=== PATIENT | male | born 1960 | race Caucasian/White ===

== ENCOUNTER 2016-12-24 11:10 | Emergency (ER) | payer BC ==
[2016-12-24] MEDS ORDERED: HYDROmorphone 1 MG/ML SYRINGE IM STA (13:51)
[2016-12-24] MEDS ORDERED: KETOROLAC 60 MG/2 ML VIAL IM STA (13:51)
[2016-12-24] MEDS ORDERED: ONDANSETRON ODT 4 MG TABLET TL STA (13:51)
[2016-12-24] MEDS ORDERED: KETOROLAC 60 MG/2 ML VIAL ONE (13:56)
[2016-12-24] MEDS ORDERED: HYDROmorphone 1 MG/ML SYRINGE ONE (13:56)
[2016-12-24] MEDS ORDERED: ONDANSETRON ODT 4 MG TABLET ONE (14:05)
== END 2016-12-24 14:38 | disposition home or self-care (01) ==
DX: N23 Unspecified renal colic (principal); R03.0 Elevated blood-pressure reading, without diagnosis of hypertension
CPT/HCPCS: 81003; 96372; 99283; J1170; Q0162

== ENCOUNTER 2019-05-28 08:33 | Outpatient (CLI) | payer BC | END 2019-05-28 08:34 | disposition home or self-care (01) | LOC: DI 08:33 | PROVIDERS: ATTEND Internal Medicine Cardiovascular Disease | DX: I47.9 Paroxysmal tachycardia, unspecified (principal) | CPT/HCPCS: 93306 ==

== ENCOUNTER 2019-06-03 12:03 | Outpatient (CLI) | payer BC ==
--- NOTE | 2019-06-03 15:48 | CARDIAC PROCEDURE NOTE ---
DATE OF SERVICE: 06/03/2019 Physician: Margret Argueta MD, [facility] INDICATION: Tachycardia and paroxysmal tachycardia. CARDIAC RISK FACTORS: Male gender, hypertension, unknown family history. DESCRIPTION OF PROCEDURE: After signing informed consent, the patient underwent a Chris-protocol treadmill stress test. No imaging was ordered with this test. Resting heart rate: 73. Peak heart rate: 154 (94% predicted maximum heart rate for age). Resting blood pressure:132/82. Peak blood pressure: 174/75. Patient exercised for 8 minutes on a Chris-protocol treadmill stress test. He achieved a peak heart rate of 154 (94% predicted maximum heart rate for age) and 10.1 METs. The patient had mild shortness of breath at peak. Oxygen saturation was 98% to 99%. Patient developed no chest pain. He described his perceived exertion at 13-14/20 on a John scale at peak. The patient developed no paroxysms of tachy-dysrhythmia. RESTING ELECTROCARDIOGRAM: Ectopic atrial rhythm (abnormal P-waves, triphasic and M-shaped) at rest, also early R/S transition present. ELECTROCARDIOGRAM AT PEAK: Upsloping ST segments in V3 through V4, and diffusely flat T waves in precordial leads and limb leads. These changes returned to baseline after 1 minute of recovery. SUMMARY 1. Abnormal rhythm and abnormal resting electrocardiogram. 2. Fair to good exercise tolerance. 3. Nonspecific EKG changes develop at an adequate level of stress. 4. No imaging was ordered with this test. Consider repeat testing with cardiac imaging. cc: Brayden Isabel MD TD: 06/03/2019 15:26 MTDD
== END 2019-06-03 12:04 | disposition home or self-care (01) ==
LOC: DI 12:03
PROVIDERS: ATTEND Internal Medicine Cardiovascular Disease
DX: I47.9 Paroxysmal tachycardia, unspecified (principal)

== ENCOUNTER 2021-10-12 02:12 | Observation (INO) | payer OTHER ==
[2021-10-12] MEDS ORDERED: SODIUM CHLORIDE 0.9% 500 ML IV STA (02:24)
[2021-10-12 02:38] LABS: BASOPHILS % (AUTO) 0.6 %; EOSINOPHILS # (AUTO) 0.3 10^3/uL (0.0-0.7); HCT - HEMATOCRIT 43.1 % (42.0-52.0); HGB - HEMOGLOBIN 14.4 g/dL (14.0-18.0); LYMPHOCYTES # (AUTO) 2.7 10^3/uL (1.5-3.5); LYMPHOCYTES % (AUTO) 39.3 %; MEAN CORPUSCULAR HEMOGLOBIN 30.4 pg (27.0-31.0); MEAN CORPUSCULAR HGB CONC 33.4 g/dL (32.0-36.0); MEAN CORPUSCULAR VOLUME 91.1 fL (80.0-94.0); MEAN PLATELET VOLUME 8.3 fL (7.4-11.4); MONOCYTES # (AUTO) 0.8 10^3/uL (0.0-1.0); MONOCYTES % (AUTO) 11.9 %; NEUTROPHILS % (AUTO) 44.1 %; PLT - PLATELET COUNT 221 10^3/uL (130-450); RED BLOOD COUNT 4.73 10^6/uL (4.70-6.10); RED CELL DISTRIBUTION WIDTH 12.4 % (12.0-15.0); WHITE BLOOD COUNT 6.8 x10^3/uL (4.8-10.8)
[2021-10-12] MEDS ORDERED: diltiaZEM INJ 5 MG/ML VIAL IVP STA (02:44)
[2021-10-12 02:59] LABS: ALBUMIN 3.9 g/dL (3.2-5.5); ALBUMIN/GLOBULIN RATIO 1.1 (1.0-2.2); BILIRUBIN,TOTAL 0.2 mg/dL (0.2-1.0); CALCIUM 9.6 mg/dL (8.5-10.3); CREATININE 1.3 mg/dL (0.6-1.2); POTASSIUM 3.6 mmol/L (3.5-5.0); TOTAL PROTEIN 7.5 g/dL (6.7-8.2)
--- NOTE | 2021-10-12 03:39 | ED Physician Documentation ---
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 denies cp. had been feeling normal yesterday during the day. denies fevers, diaphoresis. Review of Systems Ten Systems: 10 systems reviewed and negative Constitutional: denies: Fever, Chills Cardiac: reports: Palpitations. denies: Chest pain / pressure Respiratory: reports: Dyspnea. denies: Cough GI: reports: Nausea. denies: Abdominal Pain, Vomiting PD PAST MEDICAL HISTORY - Past Medical History Cardiovascular: Hypertension Respiratory: None Endocrine/Autoimmune: None : None, Kidney stones HEENT: Chronic vision loss, Chronic hearing loss Derm: None - Past Surgical History Past Surgical History: No - Present Medications Home Medications: Ambulatory Orders Medication Instructions Recorded Confirmed Dextroamphetamine/Amphetamine 10 mg PO DAILY 10/12/21 10/12/21 [Adderall 10 mg Tablet] Duloxetine HCl [Cymbalta] 40 mg PO DAILY 10/12/21 10/12/21 Losartan [Cozaar] 50 mg PO DAILY 10/12/21 10/12/21 Tadalafil [Cialis] 10 mg PO DAILY PRN 10/12/21 10/12/21 - Allergies Allergies/Adverse Reactions: Allergies Allergy/AdvReac Type Severity Reaction Status Date / Time No Known Drug Allergies Allergy Verified 10/12/21 02:31 - Social History Does the pt smoke?: No Smoking Status: Never smoker Does the pt drink ETOH?: Yes Does the pt have substance abuse?: No - Immunizations Immunizations are current?: Yes - POLST Patient has POLST: No PD ED PE NORMAL - Vitals Vital signs reviewed: Yes - General General: Alert and oriented X 3, No acute distress, Well developed/nourished - HEENT HEENT: Atraumatic, PERRL, EOMI - Neck Neck: Supple, no meningeal sign - Cardiac Cardiac: RRR - Respiratory Respiratory: No respiratory distress, Clear bilaterally - Abdomen Abdomen: Non tender, Non distended - Derm Derm: Normal color, Warm and dry - Extremities Extremities: No deformity - Neuro Neuro: No motor deficit, No sensory deficit - Psych Psych: Normal mood, Normal affect Results - Vitals Vitals: Vital Signs - 24 hr 10/12/21 10/12/21 10/12/21 02:15 02:35 03:07 Temperature 36.6 C Heart Rate 123 H 126 H 118 H Respiratory 16 16 14 Rate Blood Pressure 156/110 H 114/99 H 155/93 H O2 Saturation 98 97 98 10/12/21 10/12/21 10/12/21 03:10 03:15 03:20 Temperature Heart Rate 87 81 68 Respiratory 12 12 11 L Rate Blood Pressure 127/77 139/81 H 128/85 H O2 Saturation 96 96 98 10/12/21 10/12/21 10/12/21 03:35 03:50 04:06 Temperature 36.9 C 36.9 C Heart Rate 69 79 69 Respiratory 14 12 12 Rate Blood Pressure 129/84 H 142/89 H 142/101 H O2 Saturation 97 98 96 10/12/21 05:03 Temperature Heart Rate 94 Respiratory 11 L Rate Blood Pressure 140/104 H O2 Saturation 97 Oxygen O2 Source Room air - EKG (time done) 0219 Rate: Rate (enter#) (136) Rhythm: Atrial flutter Ischemia: Other (ST depression in v3, v4) 0344 Rate: Rate (enter#) (69) Rhythm: Atrial flutter Ischemia: Other (ST depression in precordials improved) - Labs Labs: Laboratory Tests 10/12/21 10/12/21 10/12/21 02:27 02:27 02:27 WBC 6.8 RBC 4.73 Hgb 14.4 Hct 43.1 MCV 91.1 MCH 30.4 MCHC 33.4 RDW 12.4 Plt Count 221 MPV 8.3 Neut # (Auto) 3.0 Lymph # (Auto) 2.7 [place] # (Auto) 0.8 Eos # (Auto) 0.3 Baso # (Auto) 0.0 Absolute Nucleated RBC 0.00 Nucleated RBC % 0.0 Sodium 138 Potassium 3.6 Chloride 103 Carbon Dioxide 25 Anion Gap 10.0 BUN 15 Creatinine 1.3 H Estimated GFR (MDRD) 57 L Glucose 109 H Calcium 9.6 Total Bilirubin 0.2 AST 28 ALT 29 Alkaline Phosphatase 52 Troponin I High Sens 7.5 Total Protein 7.5 Albumin 3.9 Globulin 3.6 Albumin/Globulin Ratio 1.1 Lipase 25 10/12/21 04:00 WBC RBC Hgb Hct MCV MCH MCHC RDW Plt Count MPV Neut # (Auto) Lymph # (Auto) [place] # (Auto) Eos # (Auto) Baso # (Auto) Absolute Nucleated RBC Nucleated RBC % Sodium Potassium Chloride Carbon Dioxide Anion Gap BUN Creatinine Estimated GFR (MDRD) Glucose Calcium Total Bilirubin AST ALT Alkaline Phosphatase Troponin I High Sens 9.6 Total Protein Albumin Globulin Albumin/Globulin Ratio Lipase PD MEDICAL DECISION MAKING - ED course ED course: 3:30am - HR now down to low 70s, high 60s on monitor. patient states his nausea, palpitations have resolved. will repeat ekg. Repeat ekg rate controlled aflutter.
[2021-10-12] MEDS ORDERED: ONDANSETRON 4 MG/2 ML VIAL IVP PRN (06:47)
[2021-10-12] MEDS ORDERED: SODIUM CHLORIDE FLUSH 0.9% 10 ML SYRINGE IVP PRN (06:47)
[2021-10-12] MEDS ORDERED: ACETAMINOPHEN 325 MG TABLET PO PRN (06:47)
[2021-10-12] MEDS ORDERED: diltiaZEM CD 120 MG CAPSULE PO SCH (07:00)
[2021-10-12 07:21] LABS: CALCIUM 9.2 mg/dL (8.5-10.3); CREATININE 1.4 mg/dL (0.6-1.2); POTASSIUM 4.1 mmol/L (3.5-5.0)
[2021-10-12 07:26] LABS: B. PARAPERTUSSIS- RESP PCR PAN NOT DETECTED; B. PERTUSSIS- RESP PCR PANEL NOT DETECTED; C. PNEUMONIAE- RESP PCR PANEL NOT DETECTED; CORONAVIRUS 229E-RESP PCR NOT DETECTED; CORONAVIRUS HKU1-RESP PCR NOT DETECTED; CORONAVIRUS NL63-RESP PCR NOT DETECTED; CORONAVIRUS OC43-RESP PCR NOT DETECTED; HUMAN METAPNEUMOVIRUS NOT DETECTED; INFLUENZA A- RESP PCR PANEL NOT DETECTED; INFLUENZA B - RESP PCR PANEL NOT DETECTED; M. PNEUMONIAE- RESP PCR PANEL NOT DETECTED; PARAINFLUENZA VIRUS 1 NOT DETECTED; PARAINFLUENZA VIRUS 2 NOT DETECTED; PARAINFLUENZA VIRUS 3 NOT DETECTED; PARAINFLUENZA VIRUS 4 NOT DETECTED; RHINOVIRUS/ENTEROVIRUS NOT DETECTED; RSV- RESP PCR PANEL NOT DETECTED; SARS-CoV-2 -RESP PCR PANEL NOT DETECTED
[2021-10-12] MEDS ORDERED: diltiaZEM CD 120 MG CAPSULE PO STA (07:49)
--- NOTE | 2021-10-12 08:34 | HISTORY & PHYSICAL EXAMINATION ---
Chief Complaint - Chief Complaint Chief Complaint: "heart feeling funny" History of Present Illness - Admitted From Admitted From:: [facility] - History Obtained From Records Reviewed: yes History obtained from: patient Exam Limitations: none - History of Present Illness HPI Comment/Other: Patient is a 60-year-old male who presented to the ED with complaint of his heart feeling funny. He woke up this morning around 1:[address] He has a heart monitoring device which indicated possible atrial fibrillation. After symptoms did not resolve in 30 minutes he was brought to the ED by his . Work-up included an EKG which showed he was in atrial fibrillation with rapid ventricular rhythm. He denied chest pain but reported mild dyspnea and dizziness. He denied abdominal pain. He is nauseous but no vomiting. He denied fever or chills. He was given a dose of diltiazem 20 mg IV x1 which brought his heart rate down to the 80s. However the patient slowly became tachycardic again. He reports a previous history of tachycardia 3 years ago for which she saw a incident response consultant in [place]. Work-up was unremarkable. The patient was recently started on Adderall for idiopathic hypersomnia. He has been taking this medication for 6 months. The rest of his history was unremarkable. He was admitted for better control of his heart rate and for a 2D echocardiogram. History - Past Medical History Cardiovascular: reports: Hypertension Respiratory: reports: None Neuro: reports: None Endocrine/Autoimmune: reports: None GI: reports: None : reports: None, Kidney stones HEENT: reports: Chronic vision loss, Chronic hearing loss Psych: reports: None Musculoskeletal: reports: None Derm: reports: None MRSA Hx?: No Other Past Medical History: Idiopathic hypersomnia, peripheral neuropathy - Past Surgical History Other past surgical history: Right knee arthroscopy, back surgery secondary to bulging disc. - Family & Social History Family History Comment/Other: His father at the age of 58 from a ruptured aortic aneurysm. His mother at age 53 from breast cancer. Social History Notes: He lives at home with his . He consumes alcohol occasionally. He does not use tobacco products or recreational substances. 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 - POLST Patient has POLST: No POLST Status: Full Code Meds/Allgy - Home Medications Home Medications: Ambulatory Orders Medication Instructions Recorded Confirmed Dextroamphetamine/Amphetamine 10 mg PO DAILY 10/12/21 10/12/21 [Adderall 10 mg Tablet] Duloxetine HCl [Cymbalta] 40 mg PO DAILY 10/12/21 10/12/21 Losartan [Cozaar] 50 mg PO DAILY 10/12/21 10/12/21 Tadalafil [Cialis] 10 mg PO DAILY PRN 10/12/21 10/12/21 - Allergies Allergies/Adverse Reactions: Allergies Allergy/AdvReac Type Severity Reaction Status Date / Time No Known Drug Allergies Allergy Verified 10/12/21 02:31 Review of Systems - Constitutional Constitutional: denies: Fatigue, Fever - Eyes Eyes: denies: Pain, Vision loss - Ears, Nose & Throat Ears, Nose & Throat: denies: Ear pain - Cardiovascular Cariovascular: reports: Palpitations. denies: Chest pain - Respiratory Respiratory: reports: SOB at rest. denies: Cough, Sputum production, Wheezing - Gastrointestinal Gastrointestinal: reports: Nausea. denies: Abdominal pain, Abdominal distention, Constipation, Diarrhea, Vomiting - Genitourinary Genitourinary: denies: Dysuria, Frequency, Urgency, Hematuria - Musculoskeletal Musculoskeletal: denies: Muscle pain, Back pain, Muscle aches - Integumentary Integumentary: denies: Rash, Pruritis, Lesions - Neurological Neurological: reports: Dizziness. denies: General weakness, Headache - Psychiatric Psychiatric: denies: Depression, Anxiety - Endocrine Endocrine: denies: Polyuria, Polydypsia - Hematologic/Lymphatic Hematologic/Lymphatic: denies: Bruising, Petechiae Prior Level of Functionality: Patient is independent of activities of daily living. Exam - Vital Signs Vital Signs: Vital Signs x48h Temp Pulse Resp BP Pulse Ox 10/12/21 07:24 118 H 18 148/82 H 100 10/12/21 06:03 100 12 156/95 H 99 10/12/21 05:03 94 11 L 140/104 H 97 10/12/21 04:06 36.9 C 69 12 142/101 H 96 10/12/21 03:50 36.9 C 79 12 142/89 H 98 10/12/21 03:35 69 14 129/84 H 97 10/12/21 03:20 68 11 L 128/85 H 98 10/12/21 03:15 81 12 139/81 H 96 10/12/21 03:10 87 12 127/77 96 10/12/21 03:07 118 H 14 155/93 H 98 10/12/21 02:35 126 H 16 114/99 H 97 10/12/21 02:15 36.6 C 123 H 16 156/110 H 98 - Physical Exam General Appearance: positive: No acute distress, Alert Eyes Bilateral: positive: PERRL, EOMI ENT: positive: Dry mucous membranes Neck: positive: No JVD, Trachea midline Respiratory: positive: Chest non-tender, No respiratory distress, Breath sounds nml. negative: Wheezes, Rales, Rhonchi Cardiovascular: positive: No murmur, Irregularly irregular, Tachycardia Abdomen: positive: Non-tender, No organomegaly, Nml bowel sounds, No distention. negative: Guarding, Rebound Back: positive: Nml inspection Skin: positive: Color nml, No rash, Warm, Dry Extremities: positive: Non-tender, Full ROM, Nml appearance, No pedal edema Neurologic/Psychiatric: positive: Oriented x3, Mood/affect nml Conclusion/Plan - Problem List (1) Atrial fibrillation with RVR Conclusion/Plan: Etiology undetermined. Patient given a dose of diltiazem 20 mg IV x1 in the ED. This resulted in improvement in heart rate down to the 80s. However heart rate has slowly been increasing again. Diltiazem CD 120 mg was given this morning. Will increase to diltiazem CD 180 tomorrow morning. Immediate release diltiazem 30 mg twice daily ordered because patient's heart rate was 120s. 2D echocardiogram done 10/12/2021 showed an ejection fraction of 55 to 60%. There was no wall motion abnormality seen. No aortic stenosis or regurgitation. No mitral stenosis or mitral regurgitat ion. Could not accurately assess RVSP. Given patient's Angelo vas score of 2 will advise patient take baby aspirin daily. Has recently been on Adderall in the past 6 months for idiopathic hypersomnia. Potential side effect of the stimulant could be tachycardia. Patient was advised to discuss with his primary care provider about possible discontinuation. He expressed understanding. (2) MURIEL (acute kidney injury) Conclusion/Plan: Creatinine this morning was 1.4 with estimated GFR of 52. Patient was started normal saline at 200 mL/h for 5 hours. (3) Hypertension Conclusion/Plan: On losartan. We will continue. Currently started on diltiazem as well. Blood pressure 130/92 (4) Peripheral neuropathy Conclusion/Plan: On Cymbalta 40 mg p.o. daily. (5) Idiopathic hypersomnia Conclusion/Plan: Patient has been on Adderall 10 mg p.o. daily for the past 6 months. He has been advised about the potential side effect of tachycardia and to discuss with his primary care physician about possibly changing medication. He expressed understanding. - Lab Results Fish Bones: 10/12/21 02:27 10/12/21 07:04 Core Measures - Anticipated LOS I expect patient to be DC'd or transferred within 96 hours.: Yes - DVT/VTE - Prophylaxis VTE/DVT Device ordered at admit?: Yes VTE/DVT Prophylaxis med ordered at admit?: Yes
[2021-10-12] MEDS ORDERED: METOPROLOL 5 MG/5 ML VIAL IVP PRN (09:22)
[2021-10-12] MEDS: SODIUM CHLORIDE FLUSH 0.9% 10 ML SYRINGE IVP SCH ×2 (09:55→15:16)
--- NOTE | 2021-10-12 09:55 | XRAY Report ---
PROCEDURE: Chest 1 View X-Ray INDICATIONS: Chest Pain TECHNIQUE: One view of the chest was acquired. COMPARISON: None FINDINGS: Surgical changes and devices: None. Lungs and pleura: No pleural effusions or pneumothorax. Lungs are clear. Mediastinum: Mediastinal contours appear normal. Heart size is normal. Bones and chest wall: No suspicious bony lesions. Overlying soft tissues appear unremarkable. IMPRESSION: No acute pulmonary process. The above findings are concordant with preliminary report. Reviewed by: Dana Sutton MD on 10/12/2021 9:54 AM [facility] Approved by: Dana Sutton MD on 10/12/2021 9:54 AM [facility] Station ID: [id number]
[2021-10-12] MEDS ORDERED: SODIUM CHLORIDE 0.9% 1,000 ML IV SCH (10:00)
[2021-10-12] MEDS: ENOXAPARIN 40 MG/0.4 ML SYRINGE SUBQ SCH (10:12)
[2021-10-12] MEDS: DULoxetine 20 MG CAPSULE PO SCH (10:12)
[2021-10-12] MEDS: LOSARTAN 50 MG TABLET PO SCH (10:13)
[2021-10-12] MEDS ORDERED: diltiaZEM 30 MG TABLET PO SCH (12:00)
[2021-10-12] MEDS ORDERED: METOPROLOL TARTRATE 25 MG TABLET PO SCH (12:00)
[2021-10-12] MEDS: diltiaZEM 30 MG TABLET PO SCH (18:45)
[2021-10-13] MEDS: diltiaZEM 30 MG TABLET PO SCH (00:10)
[2021-10-13] MEDS: SODIUM CHLORIDE FLUSH 0.9% 10 ML SYRINGE IVP SCH ×2 (00:11→08:58)
[2021-10-13] MEDS ORDERED: diltiaZEM CD 120 MG CAPSULE PO SCH (06:00)
[2021-10-13] MEDS ORDERED: diltiaZEM CD 180 MG CAPSULE PO SCH (07:00)
[2021-10-13] MEDS ORDERED: ASPIRIN 325 MG TABLET PO STA (07:43)
--- NOTE | 2021-10-13 07:44 | Discharge Plan ---
Discharge Plan Problem Reviewed?: Yes Disposition: Home, Self Care Condition: Stable Prescriptions: diltiaZEM [Cardizem] 30 mg PO Q6H PRN 5 Days #20 tablet PRN Reason: Tachycardia diltiaZEM CD [Cardizem Cd] 120 mg PO Q12H 30 Days #60 cap Instruction Topics: Diltiazem tablets Health Concerns: You were admitted on 10/12/2021 with atrial fibrillation with rapid ventricular rhythm. You received a one-time dose of diltiazem 20 mg IV in the emergency room which improved your heart rate down to the 70s. However over the course of time your heart rate increased back to the 130s and occasionally 150s. You were admitted and placed on diltiazem CD 120 mg. You required 3 doses of fast acting diltiazem 30 mg tablets to keep your heart rate controlled over the course of 24 hours in the hospital. As a result you are being discharged with a prescription of diltiazem CD which is a long-acting medication 120 mg p.o. twice daily. You have also been prescribed diltiazem immediate release 30 mg tablets. Instructions are to take 1 tablet of the immediate release every 6 hours if your heart rate is sustaining greater than 120 after having taken your regular diltiazem CD for the day. You had a 2D echocardiogram done which was normal as a result the only recommendation regarding anticoagulation is to take a baby aspirin daily. Level was checked and noted to be normal. It is suspected that the Adderall is contributing to tachycardia/atrial fibrillation. You have been advised to follow-up with your primary care physician regarding discontinuation of the medication. If you start experiencing weakness or dizziness check your blood pressure and if less than 110 and advised would be to discuss with your primary care physician about stopping losartan. This is because the diltiazem is also effective at lowering blood pressure. However overall if your heart rate is persisting greater than 120s and you are sensing fluttering, chest pressure, difficulty breathing or dizzy do not hesitate to come back to the emergency department for evaluation. The above plan was explained to you, you expressed understanding and are in agreement. You are being discharged in stable condition. You may follow-up with your primary care physician within 7 days or as needed. No Smoking: If you smoke, Please STOP! Call for help. Follow-up with: RENZO HINOJOSA ND [Primary Care Provider] -
--- NOTE | 2021-10-13 07:44 | DISCHARGE SUMMARY ---
Discharge Summary Admit Date: 10/12/21 Discharge Date: 10/13/21 Discharging Provider: Leticia Corona Primary Care Provider: Nella Sanchez Code Status: Attempt Resuscitation Condition at Discharge: Stable Discharge Disposition: 01 Home, Self Care - DIAGNOSES Admission Diagnoses: Atrial fibrillation with RVR Acute kidney injury Hypertension Peripheral neuropathy Idiopathic hypersomnia Discharge Diagnoses with Status of Each Condition: Atrial fibrillation with RVR: Acute. Heart rate controlled. Patient will continue taking diltiazem at home. Acute kidney injury: Improved/resolved. Patient given IV hydration with normal saline. Hypertension: Chronic. Patient on losartan. Peripheral neuropathy: Chronic. Patient takes Cymbalta. Idiopathic hypersomnia: Chronic. Patient takes Adderall. However he has been advised about possible discontinuing Adderall due to tachycardia - HPI History of Present Illness: Patient is a 60-year-old male who presented to the ED with complaint of his heart feeling funny. He woke up this morning around 1:[address] He has a heart monitoring device which indicated possible atrial fibrillation. After symptoms did not resolve in 30 minutes he was brought to the ED by his . Work-up included an EKG which showed he was in atrial fibrillation with rapid ventricular rhythm. He denied chest pain but reported mild dyspnea and dizziness. He denied abdominal pain. He is nauseous but no vomiting. He denied fever or chills. He was given a dose of diltiazem 20 mg IV x1 which brought his heart rate down to the 80s. However the patient slowly became tachycardic again. He reports a previous history of tachycardia 3 years ago for which she saw a fleet dispatch manager in [place]. Work-up was unremarkable. The patient was recently started on Adderall for idiopathic hypersomnia. He has been taking this medication for 6 months. The rest of his history was unremarkable. He was admitted for better control of his heart rate and for a 2D echocardiogram. He received a one-time dose of diltiazem 20 mg IV in the emergency room which improved your heart rate down to the 70s. However over the course of time your heart rate increased back to the 130s and occasionally 150s. He was admitted and placed on diltiazem CD 120 mg. He required 3 doses of fast acting diltiazem 30 mg tablets to keep your heart rate controlled over the co urse of 24 hours in the hospital. As a result he was discharged with a prescription of diltiazem CD which is a long-acting medication 120 mg p.o. twice daily. He was also prescribed diltiazem immediate release 30 mg tablets. Instructions are to take 1 tablet of the immediate release every 6 hours if your heart rate is sustaining greater than 120 after having taken your regular diltiazem CD for the day. He had a 2D echocardiogram done which was normal as a result the only recommendation regarding anticoagulation was to take a baby aspirin daily. Level was checked and noted to be normal. It is suspected that the Adderall is contributing to tachycardia/atrial fibrillation. He was advised to follow-up with your primary care physician regarding discontinuation of the medication. He he starts experiencing weakness or dizziness check he is to check his blood pressure and if less than 110 to discuss with his primary care physician about stopping losartan. This is because the diltiazem is also effective at lowering blood pressure. He was discharged in stable condition. - ALLERGIES Allergies/Adverse Reactions: Allergies Allergy/AdvReac Type Severity Reaction Status Date / Time No Known Drug Allergies Allergy Verified 10/12/21 02:31 - MEDICATIONS Home Medications: Ambulatory Orders Medication Instructions Recorded Confirmed Dextroamphetamine/Amphetamine 10 mg PO DAILY 10/12/21 10/12/21 [Adderall 10 mg Tablet] Duloxetine HCl [Cymbalta] 40 mg PO DAILY 10/12/21 10/12/21 Losartan [Cozaar] 50 mg PO DAILY 10/12/21 10/12/21 Tadalafil [Cialis] 10 mg PO DAILY PRN 10/12/21 10/12/21 diltiaZEM CD [Cardizem Cd] 120 mg PO Q12H 30 Days #60 cap 10/13/21 diltiaZEM [Cardizem] 30 mg PO Q6H PRN 5 Days #20 tablet 10/13/21 - PHYSICAL EXAM AT DISCHARGE General Appearance: positive: No acute distress, Alert Eyes Bilateral: positive: PERRL, EOMI ENT: positive: No signs of dehydration Neck: positive: No JVD, Trachea midline Respiratory: positive: Chest non-tender, No respiratory distress, Breath sounds nml. negative: Wheezes, Rales, Rhonchi Cardiovascular: positive: No murmur, Irregularly irregular Abdomen: positive: Non-tender, No organomegaly, Nml bowel sounds, No distention. negative: Guarding, Rebound Back: positive: Nml inspection Skin: positive: No rash, Warm, Dry Extremities: positive: Non-tender, Full ROM, Nml appearance, No pedal edema Neurologic/Psychiatric: positive: Oriented x3, Mood/affect nml - LABS Result Diagrams: 10/12/21 02:27 10/12/21 07:04 - TIME SPENT Time Spent in Discharge (Minutes): 20
[2021-10-13] MEDS: DULoxetine 20 MG CAPSULE PO SCH (08:53)
[2021-10-13] MEDS: LOSARTAN 50 MG TABLET PO SCH (08:54)
[2021-10-13] MEDS: ENOXAPARIN 40 MG/0.4 ML SYRINGE SUBQ SCH (08:55)
[2021-10-13] MEDS ORDERED: AMPHETAMINE PO SCH (09:00)
[2021-10-13] MEDS ORDERED: DEXTROAMPHETAMINE PO SCH (09:00)
[2021-10-13] MEDS ORDERED: [UNRECOGNIZED DRUG - OTHER] PO SCH (09:00)
[2021-10-13 13:34] VITALS: BP 141/77
== END 2021-10-13 14:30 | disposition home or self-care (01) ==
LOC: ED 02:12 → MS2 06:47
PROVIDERS: ADMIT Internal Medicine; ATTEND Internal Medicine
DX: I48.0 Paroxysmal atrial fibrillation (principal); I48.92 Unspecified atrial flutter; N17.9 Acute kidney failure, unspecified; I10 Essential (primary) hypertension; G47.11 Idiopathic hypersomnia with long sleep time; G62.9 Polyneuropathy, unspecified; R00.0 Tachycardia, unspecified; R11.0 Nausea; R07.9 Chest pain, unspecified; Z20.822 Contact with and (suspected) exposure to COVID-19; Z79.899 Other long term (current) drug therapy; Z82.49 Family history of ischemic heart disease and other diseases of the circulatory system
CPT/HCPCS: 0202U; 36415; 71045; 80048; 80053; 83690; 84443; 84484; 85025; 93005; 93306; A9270; G0378; J1650

== ENCOUNTER 2022-07-01 14:11 | Outpatient (CLI) | payer OTHER | END 2022-07-01 14:12 | disposition critical access hospital (66) | LOC: EMS 14:11 | DX: R42 Dizziness and giddiness (principal); R11.0 Nausea; R00.2 Palpitations | CPT/HCPCS: A0425; A0427 ==

== ENCOUNTER 2022-07-01 14:30 | Observation (INO) | payer OTHER ==
[2022-07-01] MEDS ORDERED: LORazepam 2 MG/ML VIAL IVP STA ×2 (14:48→17:00)
--- NOTE | 2022-07-01 14:56 | ED Physician Documentation ---
History of Present Illness - Stated complaint Stated Complaint: DIZZY/NAUSEA - Chief complaint Chief Complaint: Cardiac - Additonal information Additional information: 61-year-old male presents to the emergency department for evaluation of hy perventilation, sudden onset dizziness and what appears to be panic and worry. When he attempts to speak he can barely get out a word before he starts crying and mumbling unable to make coherent speech This gentleman was in the car driving with his daughter going to a celebratory lunch when he began to feel generally unwell. He then began to breathing very rapidly and EMS was summoned. In transport he was noted to have fairly rapid heart rate in the 120s but it was sinus. This gentleman does have a history of atrial flutter for which he underwent an ablation earlier this summer. He was previously on diltiazem and Eliquis though those were stopped 2 weeks ago as a Holter monitor had shown that the patient no longer had runs of flutter, fibrillation or any tacky arrhythmia. Followed by Information Security Specialist Dr. Bello He also underwent a retinal eye surgery this last and is wearing a patch on his eye. He did undergo a retinal surgery for which she has been placing ofloxacin eyedrops as well as prednisolone eyedrops into the right eye. Per his they did have instill some air behind the retina during the surgery. He also underwent corneal treatment with the laser. Patient was to be prone 80% of the time for 3 days postsurgery. He did develop some lower back pain and spasm therefore he was placed on methocarbamol. 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 for which he takes Adderall and modafinil Meds: Flomax, trazodone as needed, methocarbamol as needed, Adderall daily, modafinil daily, ofloxacin eyedrops daily, prednisolone eyedrops daily Review of Systems Unable to obtain: Other (pt condition on arival) PD PAST MEDICAL HISTORY - Past Medical History Cardiovascular: Hypertension Respiratory: None Neuro: None Endocrine/Autoimmune: None GI: None : None, Kidney stones HEENT: Chronic vision loss, Chronic hearing loss Psych: None Musculoskeletal: None Derm: None - Past Surgical History Past Surgical History: No Ortho: Spine surgery, Other - Present Medications Home Medications: Ambulatory Orders Medication Instructions Recorded Confirmed Dextroamphetamine/Amphetamine 10 mg PO DAILY 10/12/21 10/12/21 [Adderall 10 mg Tablet] Duloxetine HCl [Cymbalta] 40 mg PO DAILY 10/12/21 10/12/21 Losartan [Cozaar] 50 mg PO DAILY 10/12/21 10/12/21 Tadalafil [Cialis] 10 mg PO DAILY PRN 10/12/21 10/12/21 diltiaZEM CD [Cardizem Cd] 120 mg PO Q12H 30 Days #60 cap 10/13/21 diltiaZEM [Cardizem] 30 mg PO Q6H PRN 5 Days #20 tablet 10/13/21 - Allergies Allergies/Adverse Reactions: Allergies Allergy/AdvReac Type Severity Reaction Status Date / Time No Known Drug Allergies Allergy Verified 07/01/22 14:46 - Social History Does the pt smoke?: No Smoking Status: Never smoker Does the pt drink ETOH?: Yes Does the pt have substance abuse?: No - Immunizations Immunizations are current?: Yes - POLST Patient has POLST: No POLST Status: Full Code PD ED PE EXPANDED - General General: Anxious, In distress - Cardiac Cardiac: Tachy, Radial strong equal, Pedal strong equal, Cap refill < 2 sec. No: Murmur Present - Respiratory Respiratory: Other (Tachypnea). No: Clear to ausultation jas, Distress, Labored - Abdomen Abdomen: Normal Bowel sounds. No: Tender to palpation - Derm Derm: Normal color, Warm and dry. No: Rash - Extremities Extremities: Normal. No: Deformity, Tenderness - Neuro Neuro: CNII-XII intact - GCS Eye Opening: Spontaneous Motor: Obeys Commands Verbal: Incomprehensible Total: 12 Results - Vitals Vitals: Vital Signs - 24 hr 07/01/22 07/01/22 07/01/22 14:37 16:13 16:30 Temperature 36.4 C L Heart Rate 125 H 102 H 115 H Respiratory 30 H 19 18 Rate Blood Pressure 186/97 H 145/98 H 143/93 H O2 Saturation 100 98 98 07/01/22 07/01/22 18:30 19:30 Temperature 37.0 C Heart Rate 102 H 98 Respiratory 17 17 Rate Blood Pressure 158/98 H 151/96 H O2 Saturation 97 98 Oxygen O2 Source Room air - EKG (time done) 1434 Rate: Rate (enter#) (114) Rhythm: Sinus tachycardia [place]: Normal Intervals: Normal FL. No: Prolonged QT QRS: Poor R wave progression Ischemia: Non specific changes Compare to prior EKG: Old EKG unavailable Computer interpretation: Agree with computer - Labs Labs: Laboratory Tests 07/01/22 07/01/22 07/01/22 15:00 15:00 15:00 WBC 5.7 RBC 4.57 L Hgb 14.1 Hct 41.9 L MCV 91.7 MCH 30.9 MCHC 33.7 RDW 11.8 L Plt Count 204 MPV 8.2 Neut # (Auto) 3.2 Lymph # (Auto) 1.8 [place] # (Auto) 0.6 Eos # (Auto) 0.1 Baso # (Auto) 0.0 Absolute Nucleated RBC 0.00 Nucleated RBC % 0.0 Sodium 134 L Potassium 3.3 L Chloride 103 Carbon Dioxide 23 Anion Gap 8.0 BUN 14 Creatinine 1.1 Estimated GFR (MDRD) 68 L Glucose 118 H Calcium 8.6 Total Bilirubin 0.8 AST 22 ALT 25 Alkaline Phosphatase 54 Troponin I High Sens 3.0 Total Protein 7.5 Albumin 4.1 Globulin 3.4 Albumin/Globulin Ratio 1.2 Lipase 21 L Urine Opiates Screen Ur Oxycodone Screen Urine Methadone Screen Ur Propoxyphene Screen Ur Barbiturates Screen Ur Tricyclics Screen Ur Phencyclidine Scrn Ur Amphetamine Screen U Methamphetamines Scrn U Benzodiazepines Scrn Urine Cocaine Screen U Cannabinoids Screen SARS-CoV-2 (PCR) 07/01/22 07/01/22 17:31 17:33 WBC RBC Hgb Hct MCV MCH MCHC RDW Plt Count MPV Neut # (Auto) Lymph # (Auto) [place] # (Auto) Eos # (Auto) Baso # (Auto) Absolute Nucleated RBC Nucleated RBC % Sodium Potassium Chloride Carbon Dioxide Anion Gap BUN Creatinine Estimated GFR (MDRD) Glucose Calcium Total Bilirubin AST ALT Alkaline Phosphatase Troponin I High Sens Total Protein Albumin Globulin Albumin/Globulin Ratio Lipase Urine Opiates Screen NEGATIVE Ur Oxycodone Screen NEGATIVE Urine Methadone Screen NEGATIVE Ur Propoxyphene Screen NEGATIVE Ur Barbiturates Screen NEGATIVE Ur Tricyclics Screen NEGATIVE Ur Phencyclidine Scrn NEGATIVE Ur Amphetamine Screen NEGATIVE U Methamphetamines Scrn NEGATIVE U Benzodiazepines Scrn NEGATIVE Urine Cocaine Screen NEGATIVE U Cannabinoids Screen POSITIVE H SARS-CoV-2 (PCR) NOT DETECTED - Rads (name of study) cxr Radiology: EMP read indepedently (No acute cardiopulmonary process) CTA head Radiology: Final report received (No acute intracranial hemorrhage. No large vessel occlusion. Right globe postsurgical change suspected. No retrobulbar hematoma) CTA neck Radiology: Final report received (No large vessel occlusion. No critical stenosis. Less than 50% stenosis of bilateral ICA. Left vertebral artery is dominant.) CT pulm angio Radiology: Final report received (No pulmonary embolism. No acute airspace opacity. No pleural effusion. Small benign right adrenal adenoma) PD MEDICAL DECISION MAKING - ED course Complexity details: d/w informatics consultant ([facility]) ED course: 61-year-old male presents to the emergency department for evaluation of acute event which I now believed to be an altered mental status. He was driving with his daughter when he began to feel suddenly unwell. He reported that he was dizzy. He then began to hyperventilate and was unable to describe his symptoms or what was happening. EMS was summoned. In route for EMS he was noted to be tachycardic though sinus rhythm with a heart rate in the 120s. He underwent an ablation early this summer for history of atrial fib. He has been off Eliquis for about 2 weeks. He also underwent a retinal surgery 4 days ago as well as a right vitrectomy through a retinal specialist in [place]. He has been on ofloxacin and prednisolone eyedrops. On presentation to the emergency department the patient was awake and did not appear to have any focal deficits. He was able to give me a thumbs up on the right hand [place] fingers on the left hand as well as raise both his legs. However he seemed to have a difficult time speaking and could only forcefully get out the word hospital and no. He was very tachypneic and tachycardic and on initial presentation appeared to be having a panic-like attack. Therefore 2 mg of Ativan was given which did seem to calm the symptoms but given the unclear history we proceeded to immediately order CT angiograms of the head and neck as well as an EKG and appropriate CBC, electrolytes and troponin. Essentially the labs obtained were unremarkable. His CT angios did not show any findings of aneurysm bleed or stenosis. 1628: I have spoken with Dr. Roland the instrument maker with [facility] she is on-call for the clinic that did the patient's retinal surgery on June 28. She describes to me that under local anesthesia they did a right eye vitrectomy. A fair amount of air was injected in order to complete the procedure. They expect that he will have air remaining within the eye. His eye pressures at the time of the treatment were 10. She would not recommend checking eye pressures here in the emergency department unless the patient is complaining of eye pain. 1700: pt now with very rigid movement, almost clonic of BUE however he remains awake and moving his eye around. Telestroke consult is pending 1730: I have spoken with Tele-stroke neurologist Dr. Barrera through [place]. He has also completed the telestroke evaluation through the computer. He agrees that this patient has a very atypical presentation with aphasia and possible seizure-like symptoms. He would at this time recommend against TKA or tPA. He does feel that the risks outweigh the benefits. He would not recommend an antiepileptic unless the patient had what would be described as definite seizure-like activity again. He would like an MRI with and without contrast in the morning to evaluate for the possibility of a stroke. Due to the acuity of the symptoms, lack of fevers or leukocytosis he would not recommend an LP at this juncture. 1735: I have spoken with Dr. Botello the hospitalist about this gentleman's presentation and his altered mental status. She is requesting a PE study given that he recently stopped his Eliquis. Though he is not hypoxic and his chest x- ray was without acute findings, a sudden PE could help explain some of the symptoms. He has already received a fair amount of contrast for the angiograms that were completed of his head. Therefore the patient will be administered dextrose with bicarb in order to help prevent any renal related complications. - Critical Care Time(min): 45 Time Includes: Direct patient care, Review records, Reassess patient, Document care, Coordinate care, Medical consult Data interpretation: Labs Departure - Departure Disposition: ED Place in Observation Clinical Impression: Altered mental status, unspecified Qualifiers: Altered mental status type: coma Coma depth: [place] coma 9-12 Coma timing: at arrival to emergency department Qualified Code(s): R40.2422 - [place] coma scale score 9-12, at arrival to emergency department Discharge Date/Time: 07/01/22 20:27
[2022-07-01 15:06] LABS: BASOPHILS % (AUTO) 0.5 %; EOSINOPHILS # (AUTO) 0.1 10^3/uL (0.0-0.7); EOSINOPHILS % (AUTO) 2.3 %; HCT - HEMATOCRIT 41.9 % (42.0-52.0); HGB - HEMOGLOBIN 14.1 g/dL (14.0-18.0); LYMPHOCYTES # (AUTO) 1.8 10^3/uL (1.5-3.5); LYMPHOCYTES % (AUTO) 31.6 %; MEAN CORPUSCULAR HEMOGLOBIN 30.9 pg (27.0-31.0); MEAN CORPUSCULAR HGB CONC 33.7 g/dL (32.0-36.0); MEAN CORPUSCULAR VOLUME 91.7 fL (80.0-94.0); MEAN PLATELET VOLUME 8.2 fL (7.4-11.4); MONOCYTES # (AUTO) 0.6 10^3/uL (0.0-1.0); MONOCYTES % (AUTO) 9.9 %; NEUTROPHILS # (AUTO) 3.2 10^3/uL (1.5-6.6); NEUTROPHILS % (AUTO) 55.5 %; PLT - PLATELET COUNT 204 10^3/uL (130-450); RED BLOOD COUNT 4.57 10^6/uL (4.70-6.10); RED CELL DISTRIBUTION WIDTH 11.8 % (12.0-15.0); WHITE BLOOD COUNT 5.7 x10^3/uL (4.8-10.8)
[2022-07-01] MEDS ORDERED: ONDANSETRON 4 MG/2 ML VIAL IVP STA (15:16)
[2022-07-01 15:18] LABS: ALBUMIN 4.1 g/dL (3.2-5.5); ALBUMIN/GLOBULIN RATIO 1.2 (1.0-2.2); BILIRUBIN,TOTAL 0.8 mg/dL (0.2-1.0); CALCIUM 8.6 mg/dL (8.5-10.3); CREATININE 1.1 mg/dL (0.6-1.2); POTASSIUM 3.3 mmol/L (3.5-5.0); TOTAL PROTEIN 7.5 g/dL (6.7-8.2)
[2022-07-01] MEDS ORDERED: iohexoL-300 100 ML VIAL ONE ×2 (15:31→16:54)
--- NOTE | 2022-07-01 15:40 | XRAY Report ---
PROCEDURE: Chest 1 View X-Ray INDICATIONS: Chest Pain TECHNIQUE: One view of the chest was acquired. COMPARISON: CXR 10/12/2021. FINDINGS: Surgical changes and devices: None. Lungs and pleura: No pleural effusions or pneumothorax. Lungs are clear. Mediastinum: Mediastinal contours appear normal. Heart size is normal. Bones and chest wall: No suspicious bony lesions. Overlying soft tissues appear unremarkable. IMPRESSION: No acute cardiopulmonary abnormality. Reviewed by: Rob Garnett MD on 07/01/2022 2:39 PM LEONIDAS Approved by: Rob Garnett MD on 07/01/2022 2:39 PM LEONIDAS Station ID: [id number]
[2022-07-01] MEDS ORDERED: iohexoL-300 100 ML VIAL IVP ONE (15:59)
[2022-07-01] MEDS ORDERED: fentaNYL 100 MCG/2 ML VIAL IVP STA (16:11)
--- NOTE | 2022-07-01 16:31 | CT Report ---
PROCEDURE: ANGIO HEAD W/WO INDICATIONS: acute panic; unable to speak CONTRAST: 80ml omni 300 TECHNIQUE: Precontrast 4.5 mm thick angled axial sections acquired from the foramen magnum to the vertex. Afte r the administration of intravenous contrast, 1 mm thick sections acquired through the [place] of [place] is. Postcontrast 4.5 mm thick sections then re-acquired from the foramen magnum to the vertex. 3-di mensional iwbcjrx-[id number]-gqeiwuvogo (MIP) and/or volume rendering reformats were acquired of the c entral intracranial vasculature. For radiation dose reduction, the following was used: automated ex posure control, adjustment of mA and/or kV according to patient size. COMPARISON: Same day CTA neck. FINDINGS: Image quality: Fair. Anterior circulation: Intracranial internal carotid arteries are normal in size and flow. The flow within the paired anterior cerebral arteries is normal and symmetric. The flow within the middle cer ebral arteries is normal and symmetric. The anterior communicating artery is seen. No aneurysms are seen. Posterior circulation: Visualized portions of the vertebral arteries demonstrate normal caliber, and join to form a normal appearing basilar artery. Left vertebral artery is dominant. Flow within the p osterior cerebral arteries is normal and symmetric. No aneurysms are seen. CSF spaces: Ventricles are normal in size and shape. Basal cisterns are patent. No extra-axial flu id collections. Brain: No midline shift. No intracranial bleeds or masses. [place]-white matter interface appears int act. Skull and face: Right globe hypodensity could represent gas or other surgical liquid/prosthesis. No retrobulbar hematoma. Calvarium and facial bones appear intact, without suspicious lesions. Sinuses: Visualized mastoids are clear. Left maxillary sinus partial opacification. IMPRESSION: 1. No acute intracranial hemorrhage. 2. No large vessel occlusion. 3. Right globe postsurgical change suspected. No retrobulbar hematoma. Reviewed by: Rob Garnett MD on 07/01/2022 3:30 PM [facility]ON[facility] Approved by: Rob Garnett MD on 07/01/2022 3:30 PM LEONIDAS Station ID: [id number]
--- NOTE | 2022-07-01 16:35 | CT Report ---
PROCEDURE: ANGIO NECK W INDICATIONS: acute panic; unable to speak CONTRAST: 80ml omni 300 TECHNIQUE: After the administration of intravenous contrast, 1.5 mm axial sections acquired from the aortic arch to the [place] of [place]. Coronal 3-D maximum intensity projection (MIP) and/or volume rendering ref ormats were then performed. For radiation dose reduction, the following was used: automated exposur e control, adjustment of mA and/or kV according to patient size. COMPARISON: Same day noncontrast and CTA head.. FINDINGS: Image quality: Good. Carotid system: The great vessels demonstrate a conventional anatomy as they arise from the aortic a [facility]. The origins of the common carotid arteries appear patent. The common carotid arteries demonstr ate normal calibers and courses. The bifurcation regions appear normal bilaterally. Mild calcified p laque at the left carotid bulb. Less than 50% stenosis bilaterally. The internal carotid arteries dem onstrate normal caliber and course. Posterior circulation: The origins of the vertebral arteries appear patent. The more superior porti ons of the vertebral arteries demonstrate normal course and caliber. They join to form a normal appe aring basilar artery. Soft tissues: Visualized neck soft tissues demonstrate no suspicious abnormalities. The thyroid is normal in size and there are no incidental findings. Bones: No suspicious bony lesions. Mild to moderate degenerative change in the cervical spine. Visu alized cervical spine appears normally aligned. IMPRESSION: 1. No large vessel occlusion. 2. No critical stenosis. 3. Less than 50% stenosis in the bilateral ICA. Left vertebral artery is dominant. The estimate of stenosis included in the report of the imaging study was calculated using the NASCET method Reviewed by: Rob Garnett MD on 07/01/2022 3:34 PM LEONIDAS Approved by: Rob Garnett MD on 07/01/2022 3:34 PM [place]ON[place] Station ID: [id number]
[2022-07-01] MEDS ORDERED: SODIUM BICARBONATE 100 MEQ in DEXTROSE 5% 1,000 ML IV STA (16:48)
[2022-07-01] MEDS ORDERED: levETIRAcetam 500 MG/5 ML VIAL IVP STA (16:54)
--- NOTE | 2022-07-01 16:54 | HISTORY & PHYSICAL EXAMINATION ---
Chief Complaint - Chief Complaint Chief Complaint: Sudden agitation, altered mental status History of Present Illness - Admitted From Admitted From:: home via POV - History Obtained From Records Reviewed: [facility] History obtained from: SHILPA Broderick, and son at the bedside Exam Limitations: patient is not able to focus - History of Present Illness HPI Comment/Other: This gentleman is a 61-year-old white male who has no history of cerebrovascular disease, seizure disorder, substance abuse, or traumatic brain injury. His risk factors for arteriosclerotic disease are male sex, age, hypertension but no smoking, hyperlipidemia, diabetes or family history. He has a history of atrial flutter and was followed by Dr. Bello at [facility] cardiology. He has been having palpitations since about 2018 was a seen in the emergency room for it. No arrhythmia was discovered. He was then found to have atrial fibrillation with rapid ventricular response when he happened an episode of prolonged palpitations in October 2021. 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 An echocardiogram done October 2021 showed ejection fraction is normal. No regional wall motion abnormalities. An atrial size that was normal. He had a previous stress test and echo with the May 2019 presentation but it was with an abnormal EKG that was not atrial fibrillation and unremarkable. After his diagnosis he was referred to Dr. Bello, and he had a ablation. Eliquis and diltiazem were discontinued. A subsequent Holter monitor showed no further atrial fibrillation. The Eliquis and diltiazem was stopped 2 weeks ago. He then had eye surgery last for retinal disorder. Right eye vitrectomy and laser was done. He needs to be prone 80% of the time since surgery and he started developing back spasm with that and was put on methocarbamol. He has been wearing eye patch. 2-1/2 to 3 hours before presenting to the emergency room he was a passenger in a car with his daughter driving. He started telling them that he felt unwell. Was hyperventilating. Was moaning intermittently. Moving his arms and his legs erratically so they pulled over and called EMS. On arrival the patient could not answer questions, was not able to focus to answer but was speaking incoherently. Hyperventilating. Crying, mumbling. And having some jerky nonspecific nonfocal movements. He was unable to follow commands Consistently. For instance he would hold up his right hand for the thumb, 2 fingers on the left hand, but could not point. Speech was garbled.. Temperature was 36.4. Heart rate was 125. Blood pressure 186/97. Respirations 30 and 100% on room air. He presented as a gentleman that was anxious, could not calm down, crying. Tachypneic. But lungs were clear, sinus tachycardia, a benign belly. He was obeying commands but he was verbally incomprehensible. The ED provider spoke to the wire rope sales representative office and a fair amount of air was injected in his eyeball in order to complete the procedure. They expect him to have air-fluid levels in his eyeball. A CT head of the head shows no acute event and there is the expected air-fluid levels in his eye. CT angiogram showed no stenosis or clinic significant arteriosclerotic disease. This is both of head and neck. The ED provider discussed the case with me and I was about to do admit orders on him when she called me back and stated that the patient now had clonic rigid bilateral upper extremity movements while he was awake and moving his eyes around. Telestroke was consulted. He has a very atypical presentation with aphasia and possible seizure-like symptoms. He thinks that the risk outweighed the benefits of tPA at this time. He also does not want the patient started on seizure medications. Due to the acuity of symptoms, lack of fevers or leukocytosis, he does not recommend an LP. I was recontacted about this presentation. The case was again rediscussed. I a m asking for a CT pulmonary angiogram to be done since he is recently prone and bedbound, with recent stop of his anticoagulants. I am now placing the patient in observation. Neurology does recommend an outpatient EEG and neurology evaluation. They are also requesting an MRI for tomorrow. Labs showed normal CBC, CMP. Toxicology screen negative except for cannabinoids. COVID-negative. History - Past Medical History Cardiovascular: reports: Hypertension Respiratory: reports: None Neuro: reports: None Endocrine/Autoimmune: reports: None GI: reports: None : reports: None, Kidney stones HEENT: reports: Chronic vision loss, Chronic hearing loss Psych: reports: None Musculoskeletal: reports: None Derm: reports: None MRSA Hx?: No - Past Surgical History Ortho: reports: Spine surgery, Other - Family & Social History Family History Comment/Other: His father at the age of 58 from a r uptured aortic aneurysm. His mother at age 53 from breast cancer. 4 blood siblings. 2 have high blood pressure. (Total of 25 adopted siblings within the family). 4 children are completely healthy Living arrangement: At home Living Situation: With spouse/s.o. Social History Notes: He lives at home with his . He consumes alcohol occasionally. He does not use tobacco products or recreational substances Except for cannabis. He works for an [employer] currently. He has also been computing architect.Full-time employment - Substance History Use: Uses substance without health or social issues: NONE - POLST Patient has POLST: No POLST Status: Full Code Meds/Allgy - Home Medications Home Medications: Ambulatory Orders Medication Instructions Recorded Confirmed Dextroamphetamine/Amphetamine 10 mg PO DAILY 10/12/21 10/12/21 [Adderall 10 mg Tablet] Duloxetine HCl [Cymbalta] 40 mg PO DAILY 10/12/21 10/12/21 Losartan [Cozaar] 50 mg PO DAILY 10/12/21 10/12/21 Tadalafil [Cialis] 10 mg PO DAILY PRN 10/12/21 10/12/21 diltiaZEM CD [Cardizem Cd] 120 mg PO Q12H 30 Days #60 cap 10/13/21 diltiaZEM [Cardizem] 30 mg PO Q6H PRN 5 Days #20 tablet 10/13/21 - Allergies Allergies/Adverse Reactions: Allergies Allergy/AdvReac Type Severity Reaction Status Date / Time No Known Drug Allergies Allergy Verified 07/01/22 14:46 Review of Systems - All Other Systems All Other Systems: reports: Other (13 point review of systems done with the and son. Patient unable to participate. Other than the pertinent negatives and positives in the history of present illness all else negative.) Prior Level of Functionality: Completely independent with activities of daily living. Self-sufficient. Driving a car, paying bills, house chores. No durable medical equipment Exam - Vital Signs Reviewed Vital Signs: Yes Vital Signs: Vital Signs x48h Temp Pulse Resp BP Pulse Ox 07/01/22 16:30 115 H 18 143/93 H 98 07/01/22 16:13 102 H 19 145/98 H 98 10/30/22 14:37 36.4 C L 125 H 30 H 186/97 H 100 - Physical Exam General Appearance: positive: No acute distress, Other (Sleepy. He is received Ativan and fentanyl to calm him down. But he is alert enough to asked me "can I get to go home". states that the first full sentence she is heard him say) Eyes Bilateral: positive: Other (Wearing a right eye patch. But both pupils reactive, extraocular movements intact) ENT: positive: No signs of dehydration Neck: positive: No JVD Respiratory: positive: No respiratory distress, Other (The tachypnea and hyperventilation has resolved). negative: Wheezes, Rales, Rhonchi Cardiovascular: positive: Regular rate & rhythm, No murmur, No gallop Peripheral Pulses: positive: 1+ Abdomen: positive: Non-tender, No organomegaly, Nml bowel sounds, No distention Skin: positive: Warm, Dry Extremities: positive: Full ROM, No pedal edema Neurologic/Psychiatric: positive: CN's nml (2-12), Motor nml (Other than the sentence "can I go home". Nonverbal. Mumbling. He does acknowledge me, nod his head yes or no), Slurred/abnml speech Conclusion/Plan - Problem List (1) Altered mental status, unspecified Conclusion/Plan: Very atypical presentation of this is a stroke. Excellent work-up already performed in the ED with very helpful consultation from telestroke. Plan: Observation status Telemetry monitoring Trying to get a drug screen although I will anticipate it being positive for amphetamines due to the Adderal MRI in am Qualifiers: Altered mental status type: coma Coma depth: [place] coma 9-12 Coma timing: at arrival to emergency department Qualified Code(s): R40.2422 - Elena coma scale score 9-12, at arrival to emergency department (2) Hypertension Conclusion/Plan: Home medications are Cozaar. He is no longer on diltiazem. Will resume that. In the emergency room he started 186/97. Upon transfer to the floor is 143/93. Qualifiers: Hypertension type: primary hypertension Qualified Code(s): I10 - Essential (primary) hypertension (3) Sinus tachycardia Conclusion/Plan: I do not think this is in and of itself a cardiac event but more of a secondary manifestation of stress in his body. He has been followed by cardiology, no longer on diltiazem or Eliquis for atrial fibrillation. Will review the CT pulmonary angiogram once he gets done. He is good to be getting a liter of D5 with 2 Amp of bicarb because he is already received 2 dye studies. Will monitor BUN and creatinine tomorrow. (4) Status post eye surgery Conclusion/Plan: He would like to take his own drops from home. One of them is prednisolone. Unfortunately pharmacy is already gone, and cannot verify. I will give him permission to do so - Lab Results Lab results reviewed: Yes Fish Bones: 07/01/22 15:00 07/01/22 15:00 - Diagnostic Imaging Results Diagnostic Imaging Results: positive: Final report reviewed Core Measures - Anticipated LOS I expect patient to be DC'd or transferred within 96 hours.: Yes - DVT/VTE - Prophylaxis VTE/DVT Device ordered at admit?: Yes
[2022-07-01 17:35] LABS: MUDS CUTOFF CONCENTRATIONS CUTOFF CONC BELOW:
[2022-07-01 17:50] LABS: AMPHETAMINE SCREEN,URINE NEGATIVE (NEGATIVE); BARBITURATE SCREEN,UR NEGATIVE (NEGATIVE); BENZODIAZEPINES SCREEN, URINE NEGATIVE (NEGATIVE); COCAINE SCREEN URINE NEGATIVE (NEGATIVE); METHADONE SCREEN, URINE NEGATIVE (NEGATIVE); METHAMPHETAMINES SCREEN, URINE NEGATIVE (NEGATIVE); OPIATE SCREEN, URINE NEGATIVE (NEGATIVE); OXYCODONE SCREEN, URINE NEGATIVE (NEGATIVE); PROPOXYPHENE SCREEN, URINE NEGATIVE (NEGATIVE); THC CANNABINOID SCREEN, URINE POSITIVE (NEGATIVE); TRICYCLIC ANTIDEPRESSANT,URINE NEGATIVE (NEGATIVE)
--- NOTE | 2022-07-01 18:10 | CT Report ---
PROCEDURE: ANGIO CHEST W/WO INDICATIONS: ? PE CONTRAST: 80ml omni 300 TECHNIQUE: After the administration of intravenous contrast, 2 mm axial images were acquired from the pulmonary apices to the posterior costophrenic angles during the arterial phase. In addition, 1 mm lung kernel and 5 mm soft tissue kernel reconstructions were performed. 3-dimensional coronal oblique maximum int ensity projection (MIP) reformats, 8 mm axial MIP, and 5 mm coronal and sagittal MPR reformats were t hen performed through the thorax. For radiation dose reduction, the following was used: automated exp osure control, adjustment of mA and/or kV according to patient size. COMPARISON: CXR earlier today. FINDINGS: Image quality: Excellent. Pulmonary arteries: Pulmonary arteries are normal in size, and demonstrate no intraluminal filling d efects to suggest central pulmonary embolism. Lungs and pleura: No consolidation. Minimal atelectasis. No pleural effusions or pneumothorax. Centr al and peripheral airways are patent. Mediastinum: Heart size is normal, without pericardial effusion. No mediastinal or hilar adenopathy . Thoracic aorta is normal in caliber and enhancement. Esophagus is normal in caliber, without hiat al hernia. Bones and chest wall: No suspicious bony lesions. Ribs and thoracic spine appear intact throughout. No axillary or supraclavicular adenopathy. The thyroid is normal in size and there are no incident al findings. Abdomen: Suspect right thyroid nodule measuring 1.2 cm. This measures less than 10 Hounsfield units and is most consistent with a benign adenoma. Excreted contrast in the kidneys. Calcified splenic gra nulomas. IMPRESSION: 1. No pulmonary embolism. 2. No acute airspace opacity. 3. No pleural effusion. 4. Small benign right adrenal adenoma. Reviewed by: Rob Garnett MD on 07/01/2022 5:08 PM LEONIDAS Approved by: Rob Garnett MD on 07/01/2022 5:08 PM LEONIDAS Station ID: [id number]
[2022-07-01] MEDS: POTASSIUM CHLOR 10 MEQ/100 ML 10 MEQ/100 ML BAG IV SCH ×4 (19:32→23:03)
[2022-07-01] MEDS ORDERED: oxyCODONE 5 MG TABLET PO PRN (19:36)
[2022-07-01] MEDS ORDERED: SODIUM CHLORIDE FLUSH 0.9% 10 ML SYRINGE IVP PRN (19:36)
[2022-07-01] MEDS ORDERED: ONDANSETRON 4 MG/2 ML VIAL IVP PRN (19:36)
[2022-07-01] MEDS ORDERED: ONDANSETRON ODT 4 MG TABLET TL PRN (19:36)
[2022-07-01] MEDS ORDERED: ACETAMINOPHEN 325 MG TABLET PO PRN (19:36)
[2022-07-01] MEDS ORDERED: SODIUM CHLORIDE 0.9% 1,000 ML IV SCH (20:00)
[2022-07-01] MEDS: ENOXAPARIN 40 MG/0.4 ML SYRINGE SUBQ SCH (21:18)
[2022-07-01] MEDS: SODIUM CHLORIDE FLUSH 0.9% 10 ML SYRINGE IVP SCH (23:15)
[2022-07-02] MEDS ORDERED: GADOBUTROL 10 MMOL/10 ML VIAL ONE (07:15)
[2022-07-02] MEDS ORDERED: POTASSIUM CHLORIDE 20 MEQ TABLET PO ONE (08:03)
[2022-07-02 08:27] LABS: CALCIUM 9.2 mg/dL (8.5-10.3); CREATININE 1.1 mg/dL (0.6-1.2); POTASSIUM 4.1 mmol/L (3.5-5.0)
[2022-07-02] MEDS ORDERED: LOSARTAN 50 MG TABLET PO SCH (09:00)
[2022-07-02] MEDS: SODIUM CHLORIDE FLUSH 0.9% 10 ML SYRINGE IVP SCH (09:16)
[2022-07-02] MEDS: ENOXAPARIN 40 MG/0.4 ML SYRINGE SUBQ SCH (09:16)
--- NOTE | 2022-07-02 09:32 | Discharge Plan ---
Discharge Plan Problem Reviewed?: Yes Disposition: Home, Self Care Condition: Stable Diet: Regular Activity Restrictions: Activity as Tolerated Shower Restrictions: No Driving Restrictions: Yes (no driving until you see Neurologist) Health Concerns: You presented to our emergency room as an acute episode of garbled speech, confusion, and you almost look like you are having a panic attack with a fast heart rate, inconsolable crying. We evaluated you for infection, blood clot to the lung, stroke, and none of these things were found. We consulted with telestroke from [facility] and they did not feel that we should treat you as an acute stroke at this time since you did not have clear indications of a stroke. A CT of the head was done. Angiogram of the head and neck was done. Lab work was done. Toxicology screen was done and only positive for cannabinoids. MRI of the head was done. Plan of Treatment: Please follow-up with your neurologist Dr. Rashid and have him refer you to a specific neurologist for an EEG and neuropsych eval. Care Goals: Did not have these episodes happen again. Assessment: Patient is alert, oriented this morning. Speech is lucid. Following commands appropriately. is at the bedside. Both of them have understood the follow-up plan and given me Dr. Rashid's name. No Smoking: If you smoke, Please STOP! Call for help. Follow-up with: RENZO HINOJOSA ND [Primary Care Provider] - Rajeev Rashid MD [Physician No Access] -
--- NOTE | 2022-07-02 10:15 | DISCHARGE SUMMARY ---
"Discharge Summary Admit Date: 07/01/22 Discharge Date: 07/02/22 Discharging Provider: Cynthia Botello MD Primary Care Provider: Nella Sanchez MD in [place] Code Status: Attempt Resuscitation Condition at Discharge: Stable Discharge Disposition: 01 Home, Self Care - DIAGNOSES Discharge Diagnoses with Status of Each Condition: 1. Altered mental status 2. Hypertension 3. Hypersomnia on Adderall 4. Sinus tachycardia resolved 5. Status post eye surgery 6. Status post cardiac ablation - HPI History of Present Illness: This gentleman is a 61-year-old white male who has no history of cerebrovascular disease, seizure disorder, substance abuse, or traumatic brain injury. His risk factors for arteriosclerotic disease are male sex, age, hypertension but no smoking, hyperlipidemia, diabetes or family history. He has a history of atrial flutter and was followed by Dr. Bello at [facility] cardiology. He has been having palpitations since about 2018 was a seen in the emergency room for it. No arrhythmia was discovered. He was then found to have atrial fibrillation with rapid ventricular response when he happened an episode of prolonged palpitations in October 2021. 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 An echocardiogram done October 2021 showed ejection fraction is normal. No regional wall motion abnormalities. An atrial size that was normal. He had a previous stress test and echo with the May 2019 presentation but it was with an abnormal EKG that was not atrial fibrillation and unremarkable. After his diagnosis he was referred to Dr. Bello, and he had a ablation. Eliquis and diltiazem were discontinued. A subsequent Holter monitor showed no further atrial fibrillation. The Eliquis and diltiazem was stopped 2 weeks ago. He then had eye surgery last for retinal disorder. Right eye vitrectomy and laser was done. He needs to be prone 80% of the time since surgery and he started developing back spasm with that and was put on methocarbamol. He has been wearing eye patch. 2-1/2 to 3 hours before presenting to the emergency room he was a passenger in a car with his daughter driving. He started telling them that he felt unwell. Was hyperventilating. Was moaning intermittently. Moving his arms and his legs erratically so they pulled over and called EMS. On arrival the patient could not answer questions, was not able to focus to answer but was speaking incoherently. Hyperventilating. Crying, mumbling. And having some jerky nonspecific nonfocal movements. He was unable to follow commands Consistently. For instance he would hold up his right hand for the thumb, 2 fingers on the left hand, but could not point. Speech was garbled.. Temperature was 36.4. Heart rate was 125. Blood pressure 186/97. Respirations 30 and 100% on room air. He presented as a gentleman that was anxious, could not calm down, crying. Tachypneic. But lungs were clear, sinus tachycardia, a benign belly. He was obeying commands but he was verbally incomprehensible. The ED provider spoke to the training manager office and a fair amount of air was injected in his eyeball in order to complete the procedure. They expect him to have air-fluid levels in his eyeball. A CT head of the head shows no acute event and there is the expected air-fluid levels in his eye. CT angiogram s howed no stenosis or clinic significant arteriosclerotic disease. This is both of head and neck. The ED provider discussed the case with me and I was about to do admit orders on him when she called me back and stated that the patient now had clonic rigid bilateral upper extremity movements while he was awake and moving his eyes around. Telestroke was consulted. He has a very atypical presentation with aphasia and possible seizure-like symptoms. He thinks that the risk outweighed the benefits of tPA at this time. He also does not want the patient started on seizure medications. Due to the acuity of symptoms, lack of fevers or leukocytosis, he does not recommend an LP. I was recontacted about this presentation. The case was again rediscussed. I am asking for a CT pulmonary angiogram to be done since he is recently prone and bedbound, with recent stop of his anticoagulants. I am now placing the patient in observation. Neurology does recommend an outpatient EEG and neurology ev aluation. They are also requesting an MRI for tomorrow. Labs showed normal CBC, CMP. Toxicology screen negative except for cannabinoids. COVID-negative. - Past Medical History Cardiovascular: reports: Hypertension Respiratory: reports: None Neuro: reports: Hypersomnia on Adderall Endocrine/Autoimmune: reports: None GI: reports: None : reports: None, Kidney stones HEENT: reports: Chronic vision loss, Chronic hearing loss Psych: reports: None Musculoskeletal: reports: None Derm: reports: None MRSA Hx?: No - CONSULTS | PROCEDURES Consultations: Telestroke consult with [facility] Procedures: 1. Chest x-ray is without acute cardiopulmonary process 2. Head and neck CT angiogram were without clinically significant stenoses. T he right globe hypodensity with air-fluid levels represents gas or other surgical liquid/prosthetic. No retrobulbar hematoma. Calvarium and facial bones intact. Left maxillary sinus partial opacification. Brain without acute abnormality. 3. Chest/thorax CT angiogram without pulmonary emboli. No consolidations. Heart normal. Suspect right thyroid nodule 1.2 cm. Most consistent with a carine gn adenoma. Splenic granulomas seen. 4. MRI of head - HOSPITAL COURSE Hospital Course: The patient was already improving with some of his agitation by the time he was transferred to [facility]. He was following commands. Now able to focus to say yes, no. But speech was still garbled and he was having a lot of emotional distress around the ability of and able to speak correctly. After an overnight stay, the patient improved to baseline by the morning. He was following commands appropriately. Able to lucidly speak. He was just tired. He was f rightened and said he had no idea what happened to him. MRI of the head was done. It was normal. I was able to speak to his neurologist, Colby Rashid at [facility] neurology. His number is [phone]. I updated him on what it happened to the patient. He states that he would like a note and schedule the patient for an EEG and evaluation. I would like the patient to see his primary care provider in follow-up for continuity of care. That could be in the next 2 weeks. At discharge temperature is 36.8. Heart rate 91. Blood pressure 134/68. Respirations 20. 95% on room air after being on CPAP overnight. He is alert and oriented. Normal speech pattern. Normal vocabulary. Right eye is covered with a patch. Otherwise cranial nerves are intact. He has normal spontaneous movement and use of his limbs. No tremors. No deficits. He is discharged in stable condition to follow-up with his neurologist and primary care provider - ALLERGIES Allergies/Adverse Reactions: Allergies Allergy/AdvReac Type Severity Reaction Status Date / Time No Known Drug Allergies Allergy Verified 07/01/22 14:46 - MEDICATIONS Home Medications: Ambulatory Orders Medication Instructions Recorded Confirmed Dextroamphetamine/Amphetamine 10 mg PO DAILY 10/12/21 10/12/21 [Adderall 10 mg Tablet] Tadalafil [Cialis] 5 mg PO DAILY PRN 10/12/21 07/02/22 Losartan Potassium [Cozaar] 100 mg PO DAILY 07/02/22 07/02/22 Tamsulosin [Flomax] 0.4 mg PO DAILY 07/02/22 07/02/22 methocarbamoL [Methocarbamol] 750 mg PO TID 07/02/22 07/02/22 modafiniL [Modafinil] 100 mg PO DAILY 07/02/22 07/02/22 traZODone [Desyrel] 50 mg PO HS 07/02/22 07/02/22 - LABS Result Diagrams: 07/01/22 15:00 07/02/22 08:05"
--- NOTE | 2022-07-02 10:21 | PHARMACY PROGRESS NOTE ---
- Best Possible Medication History Admit Date and Time: 07/01/221935 Processed by: Pharmacy Medication History completed: Yes Patient Interview: Pt unable to participate Secondary Source(s): Prescription bottles, Pharmacy records, Insurance records As the person ultimately responsible for medication therapy, providers are able to order a medication from an existing home medication list in [facility] via the "Reconcile Routine" prior to Confirmation of that medication by security support analyst. Such practice is discouraged except when the physician, in their clinical judgment, deems that a medical need exists for a medication without regard to previous use.
--- NOTE | 2022-07-02 11:59 | MRI Report ---
PROCEDURE: BRAIN W/WO INDICATIONS: new aphasia, agitation, clonic UE CONTRAST: gadavist 10ml TECHNIQUE: Noncontrast axial T1 spin echo, axial T2 fast spin echo, sagittal and axial FLAIR, coronal T2 fast sp in echo, axial gradient echo, axial diffusion and ADC through the brain. After the administration of contrast, axial and coronal T1 spin echo with fat saturation through the brain. COMPARISON: Correlation is made with head and neck CT angiogram, 07/01/2022 FINDINGS: Image quality: Excellent. CSF spaces: Basal cisterns are patent. No extra-axial fluid collections. Ventricles are normal in size and shape. Brain: No midline shift. No intracranial bleeds or masses. No abnormal intracranial enhancement. There is cerebral volume loss for age. There is periventricular white matter chronic small vessel is chemic change. The brainstem appears normal. Diffusion-weighted images demonstrate no acute ischemi c insults. No chronic ischemic insults. Normal intravascular flow voids are present. Skull and face: Calvarial marrow is normal in signal. Gas versus postoperative change of the right g lobe is seen, as on series 7 image 9. Orbits otherwise appear normal. Sinuses: Moderate mucosal thickening is seen within the left maxillary sinus. Milder mucosal thickeni ng is seen elsewhere within the paranasal sinuses. IMPRESSION: No findings of acute or subacute infarction are seen. No masses or abnormal enhancement can be seen. Postoperative change versus gas of the right globe again noted. Please correlate with known patient h istory. Focal left maxillary sinus disease noted. Reviewed by: Jabier Zavala MD on 07/02/2022 10:57 AM LEONIDAS Approved by: Jabier Zavala MD on 07/02/2022 10:57 AM LEONIDAS Station ID: [id number]
[2022-07-02] MEDS ORDERED: GADOBUTROL 10 MMOL/10 ML VIAL IVP ONE (12:53)
[2022-07-02 15:51] VITALS: BP 144/78
== END 2022-07-02 16:05 | disposition home or self-care (01) ==
LOC: EDUNIT# → ED 14:30 → MS2 19:36
PROVIDERS: ADMIT Specialist; ATTEND Specialist
DX: R41.82 Altered mental status, unspecified (principal); R42 Dizziness and giddiness; R11.0 Nausea; I10 Essential (primary) hypertension; G47.10 Hypersomnia, unspecified; H54.7 Unspecified visual loss; H91.90 Unspecified hearing loss, unspecified ear; R00.0 Tachycardia, unspecified; R07.9 Chest pain, unspecified; R45.1 Restlessness and agitation; R47.01 Aphasia; Z20.822 Contact with and (suspected) exposure to COVID-19; Z74.01 Bed confinement status; Z98.890 Other specified postprocedural states
CPT/HCPCS: 36415; 51702; 70496; 70498; 70553; 71045; 71275; 80048; 80053; 80306; 83690; 84484; 85025; 87635; 93005; 96361; 96365; 96366; 96372; 96375; 96376; 99285; 99291; A9270; A9585; G0378; J1650; J2060; Q9967

== ENCOUNTER 2023-07-21 12:21 | Outpatient (CLI) | payer OTHER ==
--- NOTE | 2023-07-21 13:21 | XRAY Report ---
PROCEDURE: Lumbar Spine 2 View INDICATIONS: CHRONIC PAIN IN SPINE TECHNIQUE: 2 views of the lumbar spine were acquired. COMPARISON: None. FINDINGS: Bones: 5 [id number] vertebrae are present. There is normal bony alignment. No vertebral body compression fractures. No suspicious bony lesions. Mild disc height loss throughout the lumbar spin e. Mild facet arthrosis. Soft tissues: Overlying bowel gas pattern is normal. No suspicious soft tissue calcifications. IMPRESSION: Mild spondylitic changes of the lumbar spine. Reviewed by: Salbador Quiñones MD on 07/21/2023 12:19 PM [place] Approved by: Salbador Quiñones MD on 07/21/2023 12:19 PM [facility] Station ID: [id number]
--- NOTE | 2023-07-21 13:21 | XRAY Report ---
PROCEDURE: Cervical Spine 2 View INDICATIONS: CHRONIC PAIN IN SPINE TECHNIQUE: 3 view(s) of the cervical spine were acquired. COMPARISON: None. FINDINGS: Bones: No fractures or dislocations to the C7 level. The lateral masses of C1 appear intact on the odontoid view. No suspicious bony lesions. Mild disc height loss of the mid cervical spine with ant erior osteophyte formation. Soft tissues: No prevertebral soft tissue swelling. IMPRESSION: Moderate spinal changes of the cervical spine. Reviewed by: Salbador Quiñones MD on 07/21/2023 12:20 PM [place] Approved by: Salbador Quiñones MD on 07/21/2023 12:20 PM [id number] Station ID: [id number]
== END 2023-07-21 12:22 | disposition home or self-care (01) ==
LOC: DI 12:21
PROVIDERS: ATTEND Naturopath
DX: M47.812 Spondylosis without myelopathy or radiculopathy, cervical region (principal); M50.30 Other cervical disc degeneration, unspecified cervical region; M47.816 Spondylosis without myelopathy or radiculopathy, lumbar region